=== PATIENT | female | born 1990 | race Caucasian/White ===

== ENCOUNTER 2017-11-20 08:10 | Emergency (ER) | payer SELFPAY ==
[~2017-11-20] VITALS: Ht 165.1 cm; Wt 68.0 kg
[2017-11-20 08:12] VITALS: BP 120/81; PULSE 101; RESP 18; TEMP 98.4; O2SAT 98
[2017-11-20 08:55] LABS: BACTERIA, URINE MANY /hpf; BILIRUBIN, URINE NEG (NEG); BLOOD, URINE MOD (NEG); GLUCOSE,URINE NEG (NEG); KETONE, URINE NEG (NEG); MUCUS URINE MANY /lpf (OCC); NITRITE,URINE NEG (NEG); SQUAMOUS EPITHELIAL CELL URINE 84 /hpf (0-5); URINE COLOR YELLOW (YELLW/STRAW); URINE LEUKOCYTE ESTERASE MOD (NEG)
[2017-11-20 09:18] VITALS: BP 112/65; PULSE 79; RESP 18; O2SAT 99
[2017-11-20] MEDS ORDERED: BACT800T5 PO (09:31)
[2017-11-20] MEDS ORDERED: PHEN0.4T PO (09:31)
--- NOTE | 2017-11-20 09:32 | PD ---
HPI Chief Complaint: Abdominal Pain Time Seen by Provider: 08:55 Travel History International Travel<30 days: No Contact w/Intl Traveler<30days: No History of Present Illness HPI The patient is a 27-year-old female who presents to the emergency department for dysuria, frequency, and urgency of 2 days' duration. The patient does complain of suprapubic to left lower quadrant discomfort with her symptoms. She does have a history of one previous UTI. She denies any fever, chills, sweats, or back pain. Symptoms are moderate without any alleviating or exacerbating factors. She denies any significant vaginal discharge. The patient denies any nausea, vomiting, diarrhea, or constipation. [facility] Past Medical History Narrative Medical GERD ?: Unknown Past Surgical History Surgical History: No Previous Surgery Social History Tobacco Use: Yes (light smoker) Allergies-Medications (Allergen,Severity, Reaction): Coded Allergies: amoxicillin (Verified Allergy, Intermediate, hives, 11/20/17) penicillin V (Verified Allergy, Intermediate, hives, 11/20/17) Review of Systems Except as stated in HPI: all other systems reviewed are Neg General / Constitutional: No: Fever Cardiovascular: No: Chest Pain or Discomfort Respiratory: No: Shortness of Breath Gastrointestinal: No: Nausea, Vomiting, Diarrhea, Abdominal Pain Genitourinary: Positive: Urgency, Frequency, Dysuria, Pelvic Pain (suprapubic tenderness), No: Hematuria, Discharge, Vaginal Bleeding Physical Exam Narrative GENERAL: Awake, alert, pleasant 27 year-old female who appears her stated age and is in no acute respiratory distress. SKIN: Focused skin assessment warm/dry. HEAD: Atraumatic. Normocephalic. EYES: Pupils equal and round. No scleral icterus. No injection or drainage. ENT: No nasal bleeding or discharge. Mucous membranes pink and moist. NECK: Trachea midline. No JVD. CARDIOVASCULAR: Regular rate and rhythm. No murmur appreciated. RESPIRATORY: No accessory muscle use. Clear to auscultation. Breath sounds equal bilaterally. GASTROINTESTINAL: Abdomen soft, mild suprapubic tenderness. Back: No CVA tenderness. MUSCULOSKELETAL: No obvious deformities. No clubbing. No cyanosis. No edema. NEUROLOGICAL: Awake and alert. No obvious cranial nerve deficits. Motor grossly within normal limits. Normal speech. PSYCHIATRIC: Appropriate mood and affect; insight and judgment normal. Data Data Last Documented VS Vital Signs Date Time Temp Pulse Resp B/P (MAP) Pulse Ox O2 Delivery O2 Flow Rate FiO2 11/20/17 09:18 79 18 112/65 (81) 99 Room Air 11/20/17 08:12 98.4 Orders Orders Urinalysis - C+S If Indicated (11/20/17 08:20) Ed Urine Pregnancytest Poc (11/20/17 08:20) Urine Culture (11/20/17 08:25) Labs Laboratory Tests Test 11/20/17 08:25 Urine Color YELLOW Urine Turbidity CLOUDY Urine pH 6.0 Urine Specific [place] 1.028 Urine Protein 30 mg/dL Urine Glucose (UA) NEG mg/dL Urine Ketones NEG mg/dL Urine Occult Blood MOD Urine Nitrite NEG Urine Bilirubin NEG Urine Urobilinogen LESS THAN 2.0 MG/DL Urine Leukocyte Esterase MOD Urine RBC 2 /hpf Urine WBC 23 /hpf Urine Squamous Epithelial Cells 84 /hpf Urine Bacteria MANY /hpf Urine Mucus MANY /lpf Microscopic Urinalysis Comment CULTURE INDICATED MDM Medical Decision Making Medical Screen Exam Complete: Yes Emergency Medical Condition: Yes Medical Record Reviewed: Yes Differential Diagnosis Differential diagnosis includes UTI, vaginitis, cervicitis, PID, bacterial vaginosis, Trichomonas. Narrative Course The patient has dysuria, frequency, urgency, and a UA which reveals bacteria and WBC. The patient will be treated with Bactrim and Pyridium. She is advised to return if symptoms worsen or progress. Diagnosis Primary Impression: Cystitis Patient Instructions: General Instructions Additional Instructions: Medications as directed. Follow-up with a primary physician. Return if symptoms worsen or progress. Med/Other Pt SpecificInfo: Prescription(s) given Scripts Phenazopyridine (Pyridium) 100 Mg Tab 200 MG PO Q8H Y for DYSURIA for 2 Days, #12 TAB 0 Refills Prov: Phong Warner MD 11/20/17 Sulfamethoxazole-Trimethoprim (Bactrim DS) 800-160 Mg Tab 1 TAB PO BID for Infection, #14 TAB 0 Refills Prov: Phong Warner MD 11/20/17 Disposition: 01 DISCHARGE HOME Condition: Stable Phong Warner MD Nov 20, 2017 09:32
== END 2017-11-20 10:04 | disposition home or self-care (01) ==
LOC: NEPC 08:10
DX: N30.90 Cystitis, unspecified without hematuria (principal); R10.32 Left lower quadrant pain; K21.9 Gastro-esophageal reflux disease without esophagitis; Z72.0 Tobacco use
CPT/HCPCS: 81001; 84703; 87086; 99284